=== PATIENT | male | born 1970 | race Caucasian/White ===

== ENCOUNTER 2016-03-22 17:42 | Emergency (ER) | payer MEDICAID ==
[~2016-03-22] VITALS: Ht 172.7 cm; Wt 94.8 kg
[2016-03-22 17:47] VITALS: BP 140/66; PULSE 88; RESP 16; TEMP 96.9; O2SAT 98
[2016-03-22 19:50] VITALS: BP 128/72; PULSE 80; RESP 16; TEMP 98.2; O2SAT 99
== END 2016-03-22 19:50 | disposition home or self-care (01) ==
LOC: SED 17:42
DX: S83.91XA Sprain of unspecified site of right knee, initial encounter (principal); Z88.0 Allergy status to penicillin; X58.XXXA Exposure to other specified factors, initial encounter; Y93.51 Activity, roller skating (inline) and skateboarding; Y99.8 Other external cause status; Y92.89 Other specified places as the place of occurrence of the external cause
CPT/HCPCS: 73564; 99284